=== PATIENT | male | born 1970 | race Caucasian/White ===

== ENCOUNTER 2018-09-30 11:02 | Outpatient (CLI) | payer MEDICAID, MEDICARE | END 2018-09-30 11:39 | disposition home or self-care (01) | LOC: SLEEP 11:02 | PROVIDERS: ATTEND Pediatrics | DX: G47.33 Obstructive sleep apnea (adult) (pediatric) (principal); I10 Essential (primary) hypertension ==

== ENCOUNTER 2019-06-02 20:57 | Outpatient (CLI) | payer MEDICARE | END 2019-06-03 06:45 | disposition home or self-care (01) | LOC: SLEEP 20:57 | PROVIDERS: ATTEND Nurse Practitioner | DX: G47.33 Obstructive sleep apnea (adult) (pediatric) (principal) | CPT/HCPCS: 95811 ==

== ENCOUNTER 2021-07-05 05:27 | Outpatient (RCR) | payer MEDICARE ==
[~2021-07-05] VITALS: Ht 182.8 cm; Wt 89.0 kg
[~2021-07-05 05:27] MED LIST: ATOR40TA PO; BUDE10.2 IH; BUPR200T2 PO; CELE200C PO; CLOP75TA69 PO; DESM0.2T29 PO; DEUT6TAB PO; DULO60CA7 PO; INSU100V37 SQ; IPRA4AER IH; LEVO75CA5 PO; PANT40TA2 PO; PREG100C PO; RT-ALBUINH INH
== END 2021-07-05 09:01 | disposition home or self-care (01) ==
LOC: PREOP 05:27
PROVIDERS: ATTEND Surgery
DX: Z01.812 Encounter for preprocedural laboratory examination (principal); K29.70 Gastritis, unspecified, without bleeding; Z12.11 Encounter for screening for malignant neoplasm of colon; Z20.822 Contact with and (suspected) exposure to COVID-19
CPT/HCPCS: 87636

== ENCOUNTER 2021-07-09 09:28 | Day surgery (SDC) | payer MEDICARE, MEDICAID ==
[~2021-07-09] VITALS: Ht 182.8 cm; Wt 89.0 kg
[2021-07-09] MEDS ORDERED: LACTATED RINGERS 1,000 ML IV ONE (09:34)
[2021-07-09 09:45] VITALS: BP 132/99
[2021-07-09] MEDS ORDERED: LACTATED RINGERS 1,000 ML IV STA (09:54)
[2021-07-09] MEDS ORDERED: MIDAZOLAM 2 MG/2 ML (VERSED) VIAL ONE (09:56)
[2021-07-09] MEDS ORDERED: PROPOFOL INJECTION 50 ML IV ONE (09:57)
[2021-07-09] MEDS ORDERED: HURRICAINE EXT TUBE (BENZOCAINE) XX PRN (10:00)
--- NOTE | 2021-07-09 10:06 | Progress Note-Pre Operative ---
Pre-Operative Progress Note H&P Reviewed The H&P was reviewed, patient examined and no changes noted. Time Seen by Provider: 10:03 Date H&P Reviewed: Jul 09, 2021 Time H&P Reviewed: 10:03 Pre-Operative Diagnosis: Gastritis, Screening SAVANNAH NEFF DO Jul 09, 2021 10:06
[2021-07-09 11:25] VITALS: BP_SYST 118; BP_SYST 131; BP_DIAS 105; BP_DIAS 79
--- NOTE | 2021-07-09 11:45 | Progress Note-Post Operative ---
Post-Operative Progess Note Surgeon (s)/Melter Supervisor (s) Surgeon SAVANNAH NEFF DO Melter Supervisor: Zac Harmon, MSIII Pre-Operative Diagnosis Gastritis, Screening Post-Operative Diagnosis Gastritis Small hiatal hernia polyps internal hemorrhoids Procedure & Operative Findings Date of Procedure 07/09/21 Procedure Performed/Findings EGD with bx Colon with snare Colon with cold bx PROCEDURE NOTE: After informed consent was obtained, the patient was brought to the endoscopy suite, placed in bed in left lateral decubitus position. He was administered IV sedation by the LOG LOADER who then monitored vitals the entire time, heart rate, blood pressure and pulse ox and the scope was inserted down the mouth through the esophagus into the stomach. On the way down, noted some mild esophagitis, took a picture, pushed into the stomach, pushed past the antrum into the duodenum. Duodenum looked good. Pulled back and did a biopsy of antrum, then retroflexed the scope, saw very small sliding hiatal hernia, took a picture of this and then pulled the scope into the GE junction, took another picture of the hiatal hernia and then did a biopsy of the GE junction. Pushed the scope back into the stomach, suctioned all the air out of the stomach. At this point pulled the scope up the esophagus and out the mouth. Switched camera, switched gloves, went down below and started the colonoscopy. Pushed all the way into about 140 cm to get all the way to cecum; took a picture of the appendiceal orifice and n oted the ileocecal valve and then slowly withdrew the scope, insufflating to look circumferentially at the miller starting in the cecum, up the ascending colon to the hepatic flexure, then down the transverse colon, splenic flexure, into the descending colon. In the descending colon found a couple small flat polyps and elected to do cold biopsies. Continued down into the sigmoid and found another small polyp and did another cold biopsy. Finally into the rectum where I found 2 larger polyps and elected to remove them completely with snare polypectomy. Retroflexed in the rectal vault, saw some minimal internal hemorrhoids and took a picture of this. The patient tolerated the procedure and he recovered in the endoscopy suite. Anesthesia Type IV sedation by anesthesia Estimated Blood Loss Estimated blood loss (mL): scant Specimens/Packing Specimens Removed antral bx GE jxn bx Desc colon bx sigmoid polyp bx Rectal polyp x 2 SAVANNAH NEFF DO Jul 09, 2021 11:45
[2021-07-09 11:47] VITALS: BP 135/85
--- NOTE | 2021-07-09 11:47 | Endoscopy Discharge Instruct ---
Endo Procedure/Findings Findings 1.: Gastritis 2.: Hiatal Hernia 3.: Polyp 4.: Internal Hemorrhoids Discharge Instructions - Activity: You might feel a little sleepy until tomorrow. This is due to the medicine you received to relax you. Until tomorrow, you should: NOT drive a car, operate machinery or power tools. NOT drink any alcoholic beverages. NOT make any important decisions or sign importortant papers. Do not return to work until tomorrow, unless otherwise instructed. Resume previous activities tomorrow. Diet: Start by taking liquids. If you tolerate liquids, advance to solid food. 1.: EGD in 3 years 2.: Colonscopy in 5 years Notify Physician - If you experience excessive bleeding, unusual abdominal pain, fever, or chest pain, contact your doctor immediately. SAVANNAH NEFF DO Jul 09, 2021 11:47
[2021-07-09 12:05] VITALS: BP 135/85
--- NOTE | 2021-07-09 13:10 | Anesthesia-General Post-Op ---
MAC Patient Condition Mental Status/LOC: Same as Preop Cardiovascular: Satisfactory Nausea/Vomiting: Absent Respiratory: Satisfactory Pain: Controlled Complications: Absent Post Op Complications Complications None Follow Up Care/Instructions Patient Instructions None needed. Anesthesiology Discharge Order Discharge Order Patient was doing well after the procedure with no complaints, stable vital signs, no apparent adverse anesthesia problems. DAVONTE VEGA DO Jul 09, 2021 13:10
== END 2021-07-09 12:05 | disposition home or self-care (01) ==
LOC: ENDO 09:28
PROVIDERS: ATTEND Surgery
DX: Z12.11 Encounter for screening for malignant neoplasm of colon (principal); K29.50 Unspecified chronic gastritis without bleeding; K44.9 Diaphragmatic hernia without obstruction or gangrene; K64.8 Other hemorrhoids; K62.1 Rectal polyp; K63.5 Polyp of colon; E11.9 Type 2 diabetes mellitus without complications; I73.9 Peripheral vascular disease, unspecified; M79.7 Fibromyalgia; E03.9 Hypothyroidism, unspecified; J44.9 Chronic obstructive pulmonary disease, unspecified; J45.909 Unspecified asthma, uncomplicated; F17.210 Nicotine dependence, cigarettes, uncomplicated; Z95.1 Presence of aortocoronary bypass graft; Z79.899 Other long term (current) drug therapy; Z79.890 Hormone replacement therapy; Z79.02 Long term (current) use of antithrombotics/antiplatelets; Z79.4 Long term (current) use of insulin
CPT/HCPCS: 82947; 88305

== ENCOUNTER → 2022-03-18 | Outpatient (CLI) | payer MEDICARE, MEDICAID ==
--- NOTE | 2022-03-18 15:27 | Diagnostic Imaging Report ---
PROCEDURE: MR imaging cervical spine without contrast. TECHNIQUE: Multiplanar, multisequence MR imaging of the cervical spine was performed without contrast. INDICATION: Increasing neck pain and left arm numbness. COMPARISON: Exam is compared with cervical MR 08/13/2012. FINDINGS: Since the comparison, there has been multilevel anterior and interbody fusion C4 through C7 with decompressive laminectomies. There is complete interval resolution of what was severe canal stenosis at C5-C6 and significant improvements in what is now only mild biforaminal stenosis. Posterior fusion at C4 through C6 has been performed in the interim. Cervical spinal cord itself showed no extrinsic compression or deformation. No cord signal abnormality. No bone contusion or marrow edema. There has, however, been progressive degenerative disc space narrowing, endplate sclerosis, and osteophytes above the fusion at C3-C4 where we now have jlidtmir-[id number]-bwnkwh left and nwkb-fa-kxcfyvkt right foraminal stenosis in addition to moderate canal stenosis. At C2-C3, there is mild left greater than right foraminal stenosis with borderline mild canal narrowing. This is similar to the prior. The craniocervical junction and the C1-C2 level are normal. At the levels of fusion, alignment is anatomic and no substantial stenosis. IMPRESSION: 1. Mixed interval changes. Marked improvement/resolution of lower cervical stenosis post anterior, posterior, and interbody fusion with laminectomy decompression. No evidence for postsurgical complication. 2. Progressive junctional stenosis at C3-C4 with increased canal and left greater than right foraminal narrowing. 3. Normal spinal cord. No marrow edema. No fluid collection. Dictated by: Dictated on workstation # [id number]
== END ==
LOC: RAD 13:15
PROVIDERS: ATTEND Pediatrics
DX: M48.02 Spinal stenosis, cervical region (principal); Z98.1 Arthrodesis status; Z98.890 Other specified postprocedural states
CPT/HCPCS: 72141

== ENCOUNTER 2022-06-26 11:17 | Emergency (ER) | payer MEDICAID, MEDICARE ==
[~2022-06-26 11:17] MED LIST changes: +CLOP-31 PO; -CLOP75TA69 PO
[2022-06-26 12:21] LABS: BILIRUBIN,URINE NEGATIVE (NEGATIVE); CLARITY,URINE CLEAR; COLOR,URINE YELLOW; GLUCOSE, URINE (UA) 1+ (NEGATIVE); KETONES,URINE NEGATIVE (NEGATIVE); LEUKOCYTE ESTERASE ,URINE NEGATIVE (NEGATIVE); NITRITE,URINE NEGATIVE (NEGATIVE); PH,URINE 5.5 (5-9); PROTEIN,URINE NEGATIVE (NEGATIVE)
[2022-06-26 12:28] LABS: BACTERIA,URINE NEGATIVE /HPF; SQUAMOUS EPITHELIAL CELL,UR RARE /HPF
[2022-06-26] MEDS ORDERED: NS IV 1000 ML 1,000 ML IV SCH (13:15)
[2022-06-26] MEDS ORDERED: KETOROLAC 30 MG/ML VIAL IV ONE (13:15)
[2022-06-26 13:17] LABS: BASOPHILS # (AUTO) 0.1 10^3/uL (0.0-0.1); BASOPHILS % (AUTO) 1 % (0-10); EOSINOPHILS # (AUTO) 0.2 10^3/uL (0.0-0.3); EOSINOPHILS % (AUTO) 2 % (0-10); HEMATOCRIT 42 % (40-54); HEMOGLOBIN 14.7 g/dL (13.3-17.7); LYMPHOCYTES # (AUTO) 2.5 10^3/uL (1.0-4.0); LYMPHOCYTES % (AUTO) 25 % (12-44); MEAN CORPUSCULAR HEMOGLOBIN 29 pg (25-34); MEAN CORPUSCULAR HGB CONC 35 g/dL (32-36); MEAN CORPUSCULAR VOLUME 84 fL (80-99); MEAN PLATELET VOLUME 9.5 fL (9.0-12.2); MONOCYTES # (AUTO) 0.9 10^3/uL (0.0-1.0); MONOCYTES % (AUTO) 9 % (0-12); NEUTROPHILS # (AUTO) 6.2 10^3/uL (1.8-7.8); NEUTROPHILS % (AUTO) 62 % (42-75); PLATELET COUNT 347 10^3/uL (130-400); WHITE BLOOD COUNT 9.9 10^3/uL (4.3-11.0)
[2022-06-26 13:26] LABS: ALBUMIN 4.3 GM/DL (3.2-4.5)
[2022-06-26 13:27] LABS: CALCIUM 9.3 MG/DL (8.5-10.1)
[2022-06-26 13:29] LABS: TOTAL PROTEIN 6.9 GM/DL (6.4-8.2)
[2022-06-26 13:30] LABS: BILIRUBIN,TOTAL 0.4 MG/DL (0.1-1.0)
[2022-06-26 13:32] LABS: CREATININE SERUM 1.28 MG/DL (0.60-1.30)
--- NOTE | 2022-06-26 14:02 | Diagnostic Imaging Report ---
PROCEDURE: CT abdomen and pelvis without contrast. TECHNIQUE: Multiple contiguous axial images were obtained through the abdomen and pelvis without the use of intravenous contrast. Auto Exposure Controls were utilized during the CT exam to meet ALARA standards for radiation dose reduction. INDICATION: Abdominal pain. Began after a hard cough. COMPARISON: None. FINDINGS: The heart is unremarkable. Dependent opacities are seen in the lung bases. There is hepatic steatosis with focal fatty sparing along the gallbladder fossa. The gallbladder is decompressed. The spleen, pancreas, adrenal glands, and kidneys have a normal appearance. There is no pathologically enlarged mesenteric or retroperitoneal adenopathy. The bowel loops are nondilated. The appendix is visualized in the right lower quadrant and has a normal appearance. There is no free fluid or free air. Acute minimally displaced fracture seen involving the lateral aspect of the 10th left rib. Posterior fusion changes are visualized from L4 to S1 with bipedicle screws and fusion rods. There is calcified aortic and iliac atherosclerotic plaque without aneurysm. Ureters and bladder are normal. There is no free air, loculated collection, or adenopathy in the pelvis. IMPRESSION: 1. Acute minimally displaced fracture involving the lateral aspect of the left 10th rib. No associated injury to the spleen. No free fluid in the abdomen and pelvis. 2. Hepatic steatosis. No focal hepatic lesions. Dictated by: Dictated on workstation # [id number]
[2022-06-26] MEDS ORDERED: fentaNYL INJ 100 MCG/2 ML AMP IVP ONE (14:15)
[2022-06-26] MEDS ORDERED: HYDROcodone/APAP 5 MG/325 MG (LORTAB) TAB PO ONE (14:15)
[2022-06-26] MEDS ORDERED: ACHD5005 PO ×2 (14:33→16:10)
--- NOTE | 2022-06-26 14:33 | ED General ---
General Chief Complaint: Abdominal/GI Problems Stated Complaint: LT SIDE PAIN | ABD PAIN Nursing Triage Note: PT AMB TO ED BY POV WITH C/O LLQ AND L RIB PAIN. PT REPORTS HE BEGAN COUGHING HARD WHILE DRIVING YESTERDAY, FELT A POP AND HAS HAD SEVERE PAIN SINCE. PT HAS TRIED ICE AND HEAT TO RELIEVE PAIN WITH NO SUCCESS. WORSE WHEN TAKING A DEEP BREATH OR LEANING FORWARD. PT HAS HAD COUGH X 3 MONTHS THAT HE'S SEEN PCP FOR MULTIPLE TIMES, HAS APPT WITH ENT NEXT WEEK FOR IT. Source of Information: Patient Exam Limitations: No Limitations History of Present Illness Date Seen by Provider: Jun 26, 2022 Time Seen by Provider: 12:00 Initial Comments This is a 52-year-old male who presented to the ER via POV with complaints of left lower quadrant abdominal pain and left sided rib pain. Patient states that he was driving yesterday and had a forceful coughing fit, while he was coughing he felt a pop in his chest and has had severe pain every since this incident. He has attempted to try ice and heat to alleviate the pain, has not improved symptoms at all. States that pain is worse whenever he takes a deep breath or with certain position changes such as leaning forward. He has had a persistent cough over the past 3 months which he has been followed by his primary care provider for. He has an appointment with ENT next week. No fever, chills, chest pain, nausea, vomiting, abdominal pain. Allergies and Home Medications Allergies Coded Allergies: No Known Drug Allergies (Unverified , 07/03/15) Patient Home Medication List Home Medication List Reviewed: Yes Albuterol Sulfate (Ventolin Hfa) 1 Puff Puff, 2 PUFF INH Q4H PRN for WHEEZING, (Reported) Entered as Reported by: JORGE TAFOYA on 07/02/21 1217 Albuterol/Ipratropium (Combivent Respimat Inhal [place]) 4 Gm Aero, 2 PUFF IH DAILY, (Reported) Entered as Reported by: JORGE TAFOYA on 07/02/21 1217 Atorvastatin Calcium (Lipitor) 40 Mg Tablet, 40 MG PO DAILY, (Reported) Entered as Reported by: JORGE TAFOYA on 07/02/21 1217 Budesonide/Formoterol Fumarate (Symbicort 160-4.5 Mcg Inhaler) 10.2 Gm Hfa.aer.ad, 2 PUFF IH BID, (Reported) Entered as Reported by: JORGE TAFOYA on 07/02/211216 Bupropion HCl (Wellbutrin Sr) 200 Mg Tablet.er, 200 MG PO DAILY, (Reported) Entered as Reported by: JORGE TAFOYA on 07/02/211216 Celecoxib (Celebrex) 200 Mg Capsule, 200 MG PO DAILY, (Reported) Entered as Reported by: JORGE TAFOYA on 07/02/211216 Clopidogrel Bisulfate (Plavix) 75 Mg Tablet, 75 MG PO DAILY, (Reported) Entered as Reported by: JORGE TAFOYA on 07/02/211216 Desmopressin Acetate (Desmopressin Acetate) 0.2 Mg Tablet, 0.2 MG PO BID, (Reported) Entered as Reported by: JORGE TAFOYA on 07/02/211216 Deutetrabenazine (Austedo) 6 Mg Tablet, 6 MG PO DAILY, (Reported) Entered as Reported by: JORGE TAFOYA on 07/02/211216 Duloxetine HCl (Cymbalta) 60 Mg Capsule.dr, 60 MG PO DAILY, (Reported) Entered as Reported by: JORGE TAFOYA on 07/02/211216 Hydrocodone/Acetaminophen (Hydrocodone-Acetamin 5-325 mg) 5 Mg-325 Mg Tablet, 1 TAB PO Q6H PRN for PAIN-MODERATE (5-7) Prescribed by: ALONSO HICKS on 06/26/22 1610 Insulin Degludec (Tresiba) 100 Unit/1 Ml Vial, 100 UNIT SQ HS, (Reported) Entered as Reported by: JORGE TAFOYA on 07/02/211216 Levothyroxine Sodium (Levothyroxine) 75 Mcg Capsule, 75 MCG PO DAILY, (Reported) Entered as Reported by: JORGE TAFOYA on 07/02/211216 Pantoprazole Sodium (Protonix) 40 Mg Tablet.dr, 40 MG PO DAILY, (Reported) Entered as Reported by: JORGE TAFOYA on 07/02/211216 Pregabalin (Lyrica) 100 Mg Capsule, 100 MG PO TID, (Reported) Entered as Reported by: JORGE TAFOYA on 11/29/21 1217 Review of Systems Review of Systems Constitutional: see HPI Past Iaozryb-Qozbvv-Sutgfg Hx Patient Social History Tobacco Use?: Yes Tobacco type used: Cigarettes Smoking Status: Current Everyday Smoker Use of E-Cig and/or Vaping dev: No Substance use?: No Alcohol Use?: No Pt feels they are or have been: No Immunizations Up To Date Influenza Vaccine Up-to-Date: Yes; Up-to-Date First/Initial COVID19 Vaccinat: 12/06/2020 Second COVID19 Vaccination Héctor: 06/13/2021 Third COVID19 Vaccination Date: 06/13/2021 Past Medical History Surgery/Hospitalization HX: DM1, HTN, FIBROMYALGIA, COPD, ASTHMA, SPINAL STENOSIS, DEGENERATIVE DISC DISEASE NECK SURGERIES Surgeries: Yes (COLLAR BONE/KNEES BILAT/NECK X2/BACK X2) Orthopedic Respiratory: Yes Asthma, COPD Currently Using CPAP: Yes Currently Using BIPAP: No Cardiac: Yes (STENTS IN BOTH LEGS) Neurological: Yes Neuropathy Genitourinary: No Gastrointestinal: No Musculoskeletal: Yes (NECK SURGERY X2/BACK SURGERY X2) Endocrine: Yes Diabetes, Insulin dep, Hypothyroidsim Cancer: No Blood Disorders: No Physical Exam Vital Signs Capillary Refill : Less Than 3 Seconds Height, Weight, BMI Height: 5'11.00" Weight: 162lbs. 0.0oz. [id number]; BMI Method: General Appearance: No Apparent Distress, WD/WN Eyes: Bilateral Eye Normal Inspection, Bilateral Eye PERRL, Bilateral Eye EOMI HEENT: PERRL/EOMI, Normal ENT Inspection, Pharynx Normal Neck: Full Range of Motion, Normal Inspection, Supple Respiratory: Lungs Clear, Normal Breath Sounds, No Accessory Muscle Use, No Res piratory Distress, Other (Left lateral rib tenderness) Cardiovascular: Regular Rate, Rhythm, No Edema, No Murmur, Normal Peripheral Pulses Gastrointestinal: Normal Bowel Sounds, Soft, Tenderness (Left upper abdominal tenderness) Back: Normal Inspection, No Vertebral Tenderness Extremity: Normal Capillary Refill, Normal Inspection Neurologic/Psychiatric: Alert, Oriented x3, No Motor/Sensory Deficits, Normal Mood/Affect, hvac installation technician II-XII Norm as Tested (Grossly intact) Skin: Normal Color, Warm/Dry Progress/Results/Core Measures Suspected Sepsis SIRS Temperature: Pulse: 97 Respiratory Rate: 20 Laboratory Tests 06/26/22 13:05: White Blood Count 9.9 Blood Pressure 145 /104 Mean: 118 Laboratory Tests 06/26/22 13:05: Creatinine 1.28, Platelet Count 347, Total Bilirubin 0.4 Results/Orders Lab Results Laboratory Tests Test 06/26/22 12:10 06/26/22 13:05 Range/Units Urine Color YELLOW Urine Clarity CLEAR Urine pH 5.5 5-9 Urine Specific [place] 1.025 H 1.016-1.022 Urine Protein NEGATIVE NEGATIVE Urine Glucose (UA) 1+ H NEGATIVE Urine Ketones NEGATIVE NEGATIVE Urine Nitrite NEGATIVE NEGATIVE Urine Bilirubin NEGATIVE NEGATIVE Urine Urobilinogen 0.2 < = 1.0 MG/DL Urine Leukocyte Esterase NEGATIVE NEGATIVE Urine RBC (Auto) TRACE-I H NEGATIVE Urine RBC NONE /HPF Urine WBC NONE /HPF Urine Squamous Epithelial Cells RARE /HPF Urine Crystals NONE /LPF Urine Bacteria NEGATIVE /HPF Urine Casts NONE /LPF Urine Mucus NEGATIVE /LPF Urine Culture Indicated NO White Blood Count 9.9 4.3-11.0 10^3/uL Red Blood Count 5.02 4.30-5.52 10^6/uL Hemoglobin 14.7 13.3-17.7 g/dL Hematocrit 42 40-54 % Mean Corpuscular Volume 84 80-99 fL Mean Corpuscular Hemoglobin 29 25-34 pg Mean Corpuscular Hemoglobin Concent 35 32-36 g/dL Red Cell Distribution Width 13.6 10.0-14.5 % Platelet Count 347 130-400 10^3/uL Mean Platelet Volume 9.5 9.0-12.2 fL Immature Granulocyte % (Auto) 0 % Neutrophils (%) (Auto) 62 42-75 % Lymphocytes (%) (Auto) 25 12-44 % Monocytes (%) (Auto) 9 0-12 % Eosinophils (%) (Auto) 2 0-10 % Basophils (%) (Auto) 1 0-10 % Neutrophils # (Auto) 6.2 1.8-7.8 10^3/uL Lymphocytes # (Auto) 2.5 1.0-4.0 10^3/uL Monocytes # (Auto) 0.9 0.0-1.0 10^3/uL Eosinophils # (Auto) 0.2 0.0-0.3 10^3/uL Basophils # (Auto) 0.1 0.0-0.1 10^3/uL Immature Granulocyte # (Auto) 0.0 0.0-0.1 10^3/uL Sodium Level 135 135-145 MMOL/L Potassium Level 4.0 3.6-5.0 MMOL/L Chloride Level 100 98-107 MMOL/L Carbon Dioxide Level 24 21-32 MMOL/L Anion Gap 11 5-14 MMOL/L Blood Urea Nitrogen 9 7-18 MG/DL Creatinine 1.28 0.60-1.30 MG/DL Estimat Glomerular Filtration Rate 68 BUN/Creatinine Ratio 7 Glucose Level 186 H 70-105 MG/DL Calcium Level 9.3 8.5-10.1 MG/DL Corrected Calcium 9.1 8.5-10.1 MG/DL Total Bilirubin 0.4 0.1-1.0 MG/DL Aspartate Amino Transf (AST/SGOT) 14 5-34 U/L Alanine Aminotransferase (ALT/SGPT) 25 0-55 U/L Alkaline Phosphatase 111 40-136 U/L Total Protein 6.9 6.4-8.2 GM/DL Albumin 4.3 3.2-4.5 GM/DL My Orders Orders - ALONSO HICKS CARRIER OPERATOR Ua Culture If Indicated (06/26/22 11:24) Ed Iv/Invasive Line Start (06/26/22 13:10) Ketorolac Injection (Toradol Injection) (06/26/22 13:15) Ns Iv 1000 Ml (Sodium Chloride 0.9%) (06/26/22 13:15) Cbc With Automated Diff (06/26/22 13:10) Comprehensive Metabolic Panel (06/26/22 13:10) Ribs/Unilateral With Chest (06/26/22 13:20) Ct Abdomen/Pelvis Wo (06/26/22 13:20) Hydrocodone/Apap 5/325 Tablet (Lortab 5 (06/26/22 14:15) Fentanyl Inj (Sublimaze Injection) (06/26/22 14:15) Iv Push Ems Helicopter Pilot Ed (06/26/22 ) Medications Given in ED Vital Signs/I&O Capillary Refill : Less Than 3 Seconds Blood Pressure Mean: 118 Progress Note : Progress Note Patient examined in no acute distress. His vital signs are stable. His chest x-ray indicates a nondisplaced left 10th rib fracture. Since he is having significant abdominal pain as well we will go ahead and evaluate for splenic laceration with CT abdomen pelvis. Basic labs are unremarkable. CT abdomen pelvis unremarkable, no evidence of injury to spleen, no acute process identified on imaging. Discharge plan of care reviewed and he is agreeable with plan. Thoroughly instructed on splinting and importance of using incentive spirometer to prevent pneumonia. Verbalized understanding. Demonstrated use of spirometer in ER prior to discharge. Diagnostic Imaging Diagonstic Imaging: Xray Plain Films/CT/US/NM/MRI: chest Comments [facility], [place] NAME: DONNA AGUILAR [facility] REC#: [id number] PT STATUS: DEP ER : 1970 PHYSICIAN: ALONSO HICKS CARRIER OPERATOR ADMIT DATE: 06/26/22/ER Signed Date of Exam:06/26/22 RIBS/UNILATERAL WITH CHEST INDICATION: Chest pain after coughing. FINDINGS: There is a fracture of the left 10th rib posterolaterally. No findings of lung contusion, pneumothorax or hemothorax. No pleural fluid. No free air beneath the diaphragm. No other suspected rib fracture. IMPRESSION: Left 10th rib fracture, not significantly displaced. No other injury apparent. Dictated by: Dictated on workstation # [id number] Dict: 06/26/22 1421 Trans: 06/26/22 1517 [facility] [id number] Interpreted by: ROXIE BARBOUR Electronically signed by: ROXIE BARBOUR 06/26/22 1517 Diagonstic Imaging: CT Comments [facility], [place] NAME: DONNA AGUILAR [facility] REC#: [id number] PT STATUS: REG ER : 1970 PHYSICIAN: ALONSO HICKS CARRIER OPERATOR ADMIT DATE: 06/26/22/ER Signed Date of Exam:06/26/22 CT ABDOMEN/PELVIS WO PROCEDURE: CT abdomen and pelvis without contrast. TECHNIQUE: Multiple contiguous axial images were obtained through the abdomen and pelvis without the use of intravenous contrast. Auto Exposure Controls were utilized during the CT exam to meet ALARA standards for radiation dose reduction. INDICATION: Abdominal pain. Began after a hard cough. COMPARISON: None. FINDINGS: The heart is unremarkable. Dependent opacities are seen in the lung bases. There is hepatic steatosis with focal fatty sparing along the gallbladder fossa. The gallbladder is decompressed. The spleen, pancreas, adrenal glands, and kidneys have a normal appearance. There is no pathologically enlarged mesenteric or retroperitoneal adenopathy. The bowel loops are nondilated. The appendix is visualized in the right lower quadrant and has a normal appearance. There is no free fluid or free air. Acute minimally displaced fracture seen involving the lateral aspect of the 10th left rib. Posterior fusion changes are visualized from L4 to S1 with bipedicle screws and fusion rods. There is calcified aortic and iliac atherosclerotic plaque without aneurysm. Ureters and bladder are normal. There is no free air, loculated collection, or adenopathy in the pelvis. IMPRESSION: 1. Acute minimally displaced fracture involving the lateral aspect of the left 10th rib. No associated injury to the spleen. No free fluid in the abdomen and pelvis. 2. Hepatic steatosis. No focal hepatic lesions. Dictated by: Dictated on workstation # [id number] Dict: 06/26/22 1350 Trans: 06/26/22 1409 [place] [id number] Interpreted by: KRISTIE BULLOCK DO Electronically signed by: KRISTIE BULLOCK DO 06/26/22 1409 Departure Impression Primary Impression: Left rib fracture Disposition: 01 HOME, SELF-CARE Condition: Improved Departure-Patient Inst. Decision time for Depature: 14:30 Referrals: TAMIA HERNANDEZ MD (PCP/Family) Primary Care Physician Patient Instructions: Rib Fracture or Bruised Rib ED Add. Discharge Instructions: Plan: 1. Discharge home. 2. Follow up with your doctor if symptoms persist. 3. May use ice/heat 20 minutes at a time for pain per package. 4. May take Tylenol or Ibuprofen as needed for pain per package. 5. Take Hydrocodone 5/325mg by mouth every every 6 hours as needed, do not drive or work while taking. 6. Return to ER for any new, concerning, or worsening symptoms. All discharge instructions reviewed with patient and/or family. Voiced understanding. Scripts Hydrocodone/Acetaminophen (Hydrocodone-Acetamin 5-325 mg) 5 Mg-325 Mg Tablet 1 TAB PO Q6H PRN for PAIN-MODERATE (5-7), #20 TAB 0 Refills Prov: ALONSO HICKS CARRIER OPERATOR 06/26/22 ALONSO HICKS CARRIER OPERATOR Jun 26, 2022 14:33
[2022-06-26 14:53] VITALS: BP 123/97
== END 2022-06-26 14:57 | disposition home or self-care (01) ==
LOC: EDUNIT# 11:17 → ER 11:19
DX: S22.32XA Fracture of one rib, left side, initial encounter for closed fracture (principal); E11.9 Type 2 diabetes mellitus without complications; R07.81 Pleurodynia; R10.32 Left lower quadrant pain; F17.210 Nicotine dependence, cigarettes, uncomplicated; Z99.89 Dependence on other enabling machines and devices; Z79.4 Long term (current) use of insulin; X58.XXXA Exposure to other specified factors, initial encounter
CPT/HCPCS: 36415; 71101; 74176; 80053; 81000; 85025; 96374; 96375

== ENCOUNTER 2023-04-08 05:30 | Outpatient (CLI) | payer MEDICARE, MEDICAID ==
[~2023-04-08] VITALS: Ht 180.3 cm; Wt 98.0 kg
[~2023-04-08 05:30] MED LIST changes: +ACHD5005 PO
[2023-04-08] MEDS ORDERED: ESCI20TA39 PO (14:26)
[2023-04-08] MEDS ORDERED: FLUT1DIS26 IH (14:26)
[2023-04-08] MEDS ORDERED: LOSA50TA63 PO (14:26)
[2023-04-08] MEDS ORDERED: MIRT-47 PO (14:26)
[2023-04-08] MEDS ORDERED: TIZA4CAP8 PO (14:26)
[2023-04-08] MEDS ORDERED: OMEP40CA6 PO (14:26)
[2023-04-08] MEDS ORDERED: DESM0.2T29 PO (14:26)
[2023-04-08] MEDS ORDERED: ASPI-999 PO (14:27)
== END 2023-04-08 15:59 | disposition home or self-care (01) ==
LOC: PREOP 05:30
PROVIDERS: ATTEND Podiatrist Foot & Ankle Surgery
DX: Z01.818 Encounter for other preprocedural examination (principal)

== ENCOUNTER 2023-04-14 06:30 | Day surgery (SDC) | payer MEDICARE, MEDICAID ==
[~2023-04-14] VITALS: Ht 180.3 cm; Wt 98.0 kg
[2023-04-14] VITALS (11 sets, daily range): BP systolic 87–151; BP diastolic 56–90
[~2023-04-14 06:30] MED LIST changes: +ASPI-999 PO; +ESCI20TA39 PO; +FLUT1DIS26 IH; +LOSA50TA63 PO; +MIRT-47 PO; +OMEP40CA6 PO; +TIZA4CAP8 PO
[2023-04-14] MEDS ORDERED: ceFAZolin INJECTION 1,000 MG in NS (IVPB) 50 ML 50 ML IV ONE (07:00)
[2023-04-14] MEDS ORDERED: LACTATED RINGERS 1,000 ML 1,000 ML IV PRN (07:00)
[2023-04-14] MEDS ORDERED: LIDOCAINE 1% INJ 20 ML VIAL ONE (07:22)
[2023-04-14] MEDS ORDERED: BUPIVACAINE 0.5% 10 ML VIAL ONE (07:22)
[2023-04-14] MEDS ORDERED: fentaNYL INJECTION 100 MCG/2 ML VIAL ONE (07:45)
--- NOTE | 2023-04-14 07:46 | Progress Note-Pre Operative ---
Pre-Operative Progress Note Date of Available H&P: Apr 14, 2023 Date H&P Reviewed: Apr 14, 2023 Time H&P Reviewed: 07:46 Pre-Operative Diagnosis: Neuroma left 3rd intermetatarsal space ROBERT ASENCIO DPDay Apr 14, 2023 07:46
[2023-04-14] MEDS ORDERED: MIDAZOLAM INJ 2 MG/2 ML VIAL ONE (07:48)
[2023-04-14] MEDS ORDERED: dexAMETHasone INJ 10 MG/ML 1 ML VIAL ONE (08:16)
[2023-04-14] MEDS ORDERED: LIDOCAINE 1% INJ 20 ML VIAL INJ ONE (08:19)
[2023-04-14] MEDS ORDERED: proPOfol INJECTION 200 MG/20 ML VIAL IV ONE (08:30)
[2023-04-14] MEDS ORDERED: ONDANSETRON INJECTION 4 MG/2 ML (SDV) ONE (08:30)
[2023-04-14] MEDS ORDERED: LIDOCAINE PF 2% 5 ML VIAL ONE (08:30)
[2023-04-14] MEDS ORDERED: dexAMETHasone INJ 10 MG/ML 1 ML VIAL INJ ONE (08:33)
--- NOTE | 2023-04-14 08:50 | Progress Note-Post Operative ---
Post-Operative Progess Note Surgeon (s)/Assembly Line Upholsterer (s) Surgeon ROBERT ASENCIO DPM Assembly Line Upholsterer: none Pre-Operative Diagnosis Neuroma left 3rd intermetatarsal space Post-Operative Diagnosis Same Procedure & Operative Findings Date of Procedure 04/14/23 Procedure Performed/Findings Neurectomy left 3rd intermetatarsal space Anesthesia Type General Estimated Blood Loss Estimated blood loss (mL): Minimal Specimens/Packing Specimens Removed Neuroma, left foot ROBERT ASENCIO DPM Apr 14, 2023 08:50
[2023-04-14] MEDS ORDERED: ACHD5005 PO (08:53)
--- NOTE | 2023-04-14 08:53 | Anesthesia-General Post-Op ---
General Patient Condition Mental Status/LOC: Same as Preop Cardiovascular: Satisfactory Nausea/Vomiting: Absent Respiratory: Satisfactory Pain: Controlled Complications: Absent Post Op Complications Complications None Follow Up Care/Instructions Patient Instructions None needed. Anesthesia/Patient Condition Patient Condition Patient is doing well, no complaints, stable vital signs, no apparent adverse anesthesia problems. No complications reported per nursing. ANDRES GUZMAN CRNA Apr 14, 2023 08:53
[2023-04-14] MEDS ORDERED: HYDROcodone/ACETAMINOPHEN 5 MG/325 MG TABLET PO PRN (09:00)
[2023-04-14] MEDS ORDERED: LACTATED RINGERS 1,000 ML 1,000 ML IV SCH (09:00)
[2023-04-14] MEDS ORDERED: ONDANSETRON INJECTION 4 MG/2 ML (SDV) IVP PRN (09:00)
[2023-04-14] MEDS ORDERED: fentaNYL INJECTION 100 MCG/2 ML VIAL IVP ONE (09:00)
[2023-04-14] MEDS ORDERED: morphine INJ 10 MG/ML 1ML (SYR OR VIAL) IVP ONE (09:00)
--- NOTE | 2023-04-14 11:44 | Physical Therapy Ortho Eval ---
PT Orthopedic Evaluation Type of Surgery Neuroma left 3rd intermetatarsal space Prior Level of Function Current Living Status: Spouse Locomotion (Upon Admit): Independent Established Durable Medical Eq: Front Wheeled Walker, Crutches Subjective Entry Into Home: Stairs With Railing Steps Into Home: 3 Motor Control Motor Control: Motor Control WNL Strength Strength: WFL Transfer SCALE: Activities may be completed with or without assistive devices. 0-Jqnyccuxel-iyezzif completes the activity by him/herself with no assistance from a helper. 5-Set-up or Clean-up Assistance-helper sets up or cleans up; patient completes activity. [place] assists only prior to or following the activity. 4-Supervision or Touching Assistance-helper provides verbal cues and/or touching/steadying and/or contact guard assistance as patient completes activity. Assistance may be provided throughout the activity or intermittently. 3-Partial/Moderate Assistance-helper does LESS THAN HALF the effort. [place] lifts, holds or supports trunk or limbs, but provides less than half the effort. 2-Substantial/Maximal Assistance-helper does MORE THAN HALF the effort. [place] lifts or holds trunk or limbs and provides more than half the effort. 6-Gopwopdwy-ifgqye does ALL the effort. Patient does none of the effort to complete the activity. Or, the assistance of 2 or more helpers is required for the patient to complete the activity. If activity was not attempted, code reason: 7-Patient Refused. 9-Not Applicable-not attempted and the patient did not perform the activity before the current illness, exacerbation or injury. 10-Not Attempted due to Environmental Limitations-(lack of equipment, weather restraints, etc.). 88-Not Attempted due to Medical Conditions or Safety Concerns. Transfers (B, C, W/C) (QC): 4 Gait Gait Assistive Device: FWW Right Lower Extremity: Right Weight Bearing Status RLE: Full Weight Bearing Left Lower Extremity: Left Weight Bearing Status LLE: Non Weight Bearing Other Weight Bearing Inst.: Heel contact okay for balance and transfers Gait (QC): 4 (unsteady) Treatment Rendered Treatment: Gait Train (patient wants a knee scooter for mobility), Step Train (verbal) Assessment/Goals Goal Time Frame: 1 Visit Plan PT/Family Agrees to Plan: Yes Time Time In: 1120 Time Out: 1130 Total Billed Treatment Time: 10 Billed Treatment Time 1 visit [facility] 10 min TEZ LEES PT Apr 14, 2023 11:44
--- NOTE | 2023-04-14 16:15 | OPERATIVE REPORT ---
DATE OF SERVICE: 04/14/2023 SURGEON: Dipika Clancy DPM. PREOPERATIVE DIAGNOSIS: Neuroma, third intermetatarsal space, left foot. POSTOPERATIVE DIAGNOSIS: Neuroma, third intermetatarsal space, left foot. PROCEDURE: Neurectomy, left third intermetatarsal space. WOUND CLASS: Clean. ANESTHESIA: General. HEMOSTASIS: Pneumatic thigh tourniquet at 250 mmHg. INDICATIONS: This 52-year-old male presents complaining of a painful neuroma of the left foot. Conservative therapy is met with unsatisfactory results and the patient is agreeable to surgical intervention after risks and complications were discussed at length. No guarantees were extended to the patient and he is willing to proceed. DESCRIPTION OF PROCEDURE: The patient was brought back to the operating table and placed in secure supine position. Appropriate timeout was performed. A general anesthetic was then induced. Pneumatic thigh tourniquet was placed on the left lower extremity over several layers of padding. Preprocedural injection, local injection of 10 mg, mixture of 1% Xylocaine and 0.5% Marcaine was injected into the proximal third intermetatarsal space area in a local infusion to the surgical site. The left foot was then elevated, allowed to exsanguinate after which the tourniquet was inflated to 250 mmHg. Attention was then directed to the dorsal aspect of the left third intermetatarsal space where a 3 cm longitudinal linear incision was created. The incision was deepened down to the subcutaneous tissue where only necessary blood vessels were cauterized as encountered. Blunt dissection was carried out into the deep transverse intermetatarsal ligament, which was incised. This exposed the underlying white mass, grossly identified to be a neuroma. The neural tissue was coaxially dissected proximally and distally into the proper digital nerves as well as into the intrinsic musculature area. The nerve endings were cut as distally and proximally as possible, especially with the proximal cut to be at the level of the intrinsic musculature. The specimen was sent for gross and microscopic evaluation. The wound was inspected for any other pathology. No other issues were identified. The wound was flushed with copious amounts of normal saline. Closure was then performed in layers. The subcutaneous tissue was reapproximated utilizing 4-0 Vicryl, after which a skin closure was performed with 4-0 Prolene in a horizontal mattress type stitch. The postoperative injection consisted of 10 more mL of 1:1 mixture of 1% Xylocaine and 0.5% Marcaine injected in a local infusion to the surgical site. Also, 10 mg of dexamethasone was injected into the proximal aspect of the surgical site into the third intermetatarsal space. Postoperative dressing consisted of Betadine-soaked Adaptic, sterile 4 x 4's, sterile Kerlix, all secured with a Coban wrap. The patient tolerated the anesthesia and procedure well and was transported from the operating room to the recovery area with vital signs stable and vascular status intact to all digits of the left foot. He is to be nonweightbearing on the left lower extremity. We will see him in the office in 10 days period of time or sooner if necessary. Job ID: [id number] DocumentID: [id number] Dictated Date: 04/14/2023 09:01:24 Director Database Date: 04/14/2023 16:13:00 Dictated By: AURE NORWOOD
== END 2023-04-14 11:20 | disposition home or self-care (01) ==
LOC: SDC 06:30
PROVIDERS: ATTEND Podiatrist Foot & Ankle Surgery
DX: G57.82 Other specified mononeuropathies of left lower limb (principal); K21.9 Gastro-esophageal reflux disease without esophagitis; E10.9 Type 1 diabetes mellitus without complications; I10 Essential (primary) hypertension; F41.0 Panic disorder [episodic paroxysmal anxiety]; F41.9 Anxiety disorder, unspecified; F17.210 Nicotine dependence, cigarettes, uncomplicated; Z79.899 Other long term (current) drug therapy
CPT/HCPCS: 82947; 87081